=== PATIENT | female | born 1940 | race Hispanic/Latino ===

== ENCOUNTER 2020-07-15 13:22 | Observation (INO) | payer OTHER, MEDICARE ==
[~2020-07-15] VITALS: Ht 160 cm; Wt 55.3 kg
[2020-07-15 13:49] LABS: BASOPHILS % (AUTO) 0.6 % (0.0-5.0); EOSINOPHILS % (AUTO) 0.4 % (0.0-8.0); HEMATOCRIT 36.4 % (36-48); LYMPHOCYTES % (AUTO) 21.8 % (21.0-51.0); MEAN CORPUSCULAR HGB CONC 33.5 g/dL (32.0-36.0); MEAN CORPUSCULAR VOLUME 92.6 fL (79-99); MONOCYTES % (AUTO) 5.8 % (3.0-13.0); NEUTROPHILS % (AUTO) 71.4 % (40.0-77.0); PLATELET COUNT (AUTO) 196 K/uL (130-400); RED BLOOD CELL COUNT(AUTO) 3.93 MIL/uL (4.00-5.50); RED CELL DISTRIBUTION WIDTH 12.9 % (11.0-15.5); WHITE BLOOD COUNT (AUTO) 5.2 K/uL (4.8-10.8)
[2020-07-15 13:56] LABS: INR 1.01 (0.85-1.15)
[2020-07-15 13:57] LABS: PARTIAL THROMBOPLASTIN TIME 27.8 SEC (26.3-35.5)
[2020-07-15 14:02] LABS: CREATININE 0.9 mg/dL (0.5-1.5); POTASSIUM 3.9 mmol/L (3.5-5.1)
[2020-07-15 14:11] LABS: ALBUMIN 4.2 g/dL (3.5-5.0); BILIRUBIN,TOTAL 0.5 mg/dL (0.2-1.0); TOTAL PROTEIN, SERUM 7.7 g/dL (6.0-8.3)
[2020-07-15 15:36] LABS: APPEARANCE,URINE Clear (CLEAR); BILIRUBIN,URINE Negative (NEGATIVE); COLOR,URINE Yellow (YELLOW); GLUCOSE, URINE (UA) Negative (NEGATIVE); KETONES,URINE Trace mg/dL (NEGATIVE); LEUKOCYTE ESTERASE ,URINE Negative (NEGATIVE); NITRATE,URINE Negative (NEGATIVE); OCCULT BLOOD,URINE Trace (NEGATIVE); PH,URINE 7.5 (5.0-8.0); PROTEIN,URINE Negative (NEGATIVE); UROBILINOGEN,URINE 0.2 mg/dL (0.2-1.0)
[2020-07-15 16:18] LABS: BACTERIA,URINE Rare /HPF (None Seen); RBC,URINE 0-1 /HPF (0-1); SQUAMOUS EPITHELIAL CELL,UR None Seen /HPF (0-2); WBC,URINE None Seen /HPF (0-1)
[2020-07-15] MEDS ORDERED: ENOXAPARIN SODIUM 60 MG/0.6 ML SQ SCH (17:00)
[2020-07-15] MEDS ORDERED: MORPHINE SULFATE 4 MG/1ML SYG IVP PRN (17:15)
[2020-07-15] MEDS ORDERED: REGADENOSON 0.4 MG/5 ML PF SYG IVP SCH (17:15)
[2020-07-15] MEDS ORDERED: ENOXAPARIN SODIUM 60 MG/0.6 ML SQ ONE (20:43)
[2020-07-15] MEDS ORDERED: CLOPIDOGREL BISULFATE 75 MG TAB ONE (20:43)
[2020-07-15 22:20] VITALS: BP 148/69
[2020-07-15] MEDS ORDERED: CYCL30DR OU (23:13)
[2020-07-15] MEDS ORDERED: AMLO-257 PO (23:13)
[2020-07-15] MEDS ORDERED: ACET-2247 PO (23:13)
[2020-07-16 00:28] VITALS: BP 113/60
[2020-07-16 04:32] VITALS: BP 134/66
[2020-07-16 08:00] VITALS: BP 137/66
[2020-07-16] MEDS ORDERED: CLOPIDOGREL BISULFATE 75 MG TAB PO SCH (09:00)
[2020-07-16 12:03] VITALS: BP 131/71
[2020-07-16 16:00] VITALS: BP 148/66
== END 2020-07-16 18:05 | disposition home or self-care (01) ==
LOC: EDH 13:22 → EDHIP 16:15 → 3BH 20:58
PROVIDERS: ADMIT Internal Medicine; ATTEND Internal Medicine
DX: I24.9 Acute ischemic heart disease, unspecified (principal); Z20.822 Contact with and (suspected) exposure to COVID-19; I10 Essential (primary) hypertension; K21.9 Gastro-esophageal reflux disease without esophagitis; E78.5 Hyperlipidemia, unspecified; Z87.891 Personal history of nicotine dependence; Z90.710 Acquired absence of both cervix and uterus; Z79.899 Other long term (current) drug therapy; Z88.6 Allergy status to analgesic agent
CPT/HCPCS: 36415; 71045; 78452; 80053; 81001; 82550; 83605; 83690; 83880; 84484; 85025; 85610; 85730; 87040 ×2; 87426; 87804 ×2; 93005; 93017; 99285; A9500 ×2; G0378 ×23; J1650; J2785; U0003; 96374

== ENCOUNTER 2020-07-21 11:39 | Emergency (ER) | payer MEDICARE, OTHER ==
[~2020-07-21 11:39] MED LIST: ACET-2247 PO; AMLO-257 PO; CYCL30DR OU
[2020-07-21] MEDS ORDERED: HYDROCORTISONE SOD SUCCINATE 100 MG/2 ML VIAL ONE (12:57)
== END 2020-07-21 14:14 | disposition home or self-care (01) ==
LOC: EDH 11:39
DX: M54.2 Cervicalgia (principal); F41.9 Anxiety disorder, unspecified; R55 Syncope and collapse; I10 Essential (primary) hypertension; K21.9 Gastro-esophageal reflux disease without esophagitis; Z90.710 Acquired absence of both cervix and uterus; Z98.890 Other specified postprocedural states; Z88.6 Allergy status to analgesic agent; V43.52XA Car driver injured in collision with other type car in traffic accident, initial encounter; Y93.89 Activity, other specified; Y92.410 Unspecified street and highway as the place of occurrence of the external cause; Y99.8 Other external cause status
CPT/HCPCS: 71045; 93005; 96374; 99283; J1720

== ENCOUNTER → 2022-04-04 | Outpatient (CLI) | payer OTHER | END | disposition home or self-care (01) | LOC: SHCH 12:47 | PROVIDERS: ATTEND Internal Medicine Cardiovascular Disease | DX: I70.213 Atherosclerosis of native arteries of extremities with intermittent claudication, bilateral legs (principal) | CPT/HCPCS: 93925 ==

== ENCOUNTER → 2022-04-06 | Outpatient (CLI) | payer OTHER ==
[~2022-04-06] MED LIST changes: +REGADENOSON 0.4 MG/5 ML PF SYG IVP SCH
== END | disposition home or self-care (01) ==
LOC: SHCH 08:15
PROVIDERS: ATTEND Internal Medicine Cardiovascular Disease
DX: I25.6 Silent myocardial ischemia (principal); I10 Essential (primary) hypertension; R06.00 Dyspnea, unspecified; R53.83 Other fatigue; R06.02 Shortness of breath
CPT/HCPCS: 78452; 96374; 93017; J2785; A9500 ×2

== ENCOUNTER → 2022-06-11 | Outpatient (CLI) | payer OTHER, MEDICARE ==
[~2022-06-11] MED LIST changes: -REGADENOSON 0.4 MG/5 ML PF SYG IVP SCH
[2022-06-11 12:51] LABS: CHOLESTEROL 177 mg/dL (<200); HDL CHOLESTEROL 79 mg/dL (35-85); LDL DIRECT 91 mg/dL (0-99); TRIGLYCERIDES 55 mg/dL (30-200)
== END | disposition home or self-care (01) ==
LOC: LAB 08:24
PROVIDERS: ATTEND Internal Medicine Cardiovascular Disease
DX: I21.9 Acute myocardial infarction, unspecified (principal)
CPT/HCPCS: 36415; 80061

== ENCOUNTER → 2023-01-11 | Outpatient (CLI) | payer OTHER, MEDICARE ==
[2023-01-11 12:46] LABS: CHOLESTEROL 150 mg/dL (<200); HDL CHOLESTEROL 96 mg/dL (35-85); LDL DIRECT 51 mg/dL (0-99); TRIGLYCERIDES 30 mg/dL (30-200)
== END | disposition home or self-care (01) ==
LOC: LAB 08:41
PROVIDERS: ATTEND Internal Medicine Cardiovascular Disease
DX: E78.5 Hyperlipidemia, unspecified (principal)
CPT/HCPCS: 36415; 80061

== ENCOUNTER 2024-10-14 14:50 | Observation (INO) | payer OTHER, MEDICARE ==
[~2024-10-14] VITALS: Ht 160 cm; Wt 47.4 kg
--- NOTE | 2024-10-14 15:06 | ERN ---
General Chief Complaint: Fatigue Stated Complaint: GBW Time Seen by MD: 14:52 Source: patient, family History of Present Illness Initial Comments Patient is a an 83-year-old female coming in with generalized body weakness. Per family member patient has been feeling very weak in his has been eating well. Allergies: Coded Allergies: ibuprofen (Verified Allergy, Unknown, 07/15/20) Home Meds Reported Medications Acetaminophen (Tylenol) 325 Mg Tablet, 650 MG PO Q4HPRN PRN for PAIN LEVEL 1 TO 3, TAB 07/15/20 Cyclosporine (Restasis) 1 Each Droperette, 1 EACH OU BID, DROP 07/15/20 Amlodipine Besylate (Amlodipine Besylate) 5 Mg Tablet, 5 MG PO DAILY, TAB 07/15/20 Past Medical History Past Medical History: High Cholesterol, Hypertension Past Surgical History: Hysterectomy Surgical History Other: BACK SX, NECK SX ROS Dictation CONSTITUTIONAL: No chills, no fever, weakness, no diaphoresis, malaise. HEAD/FACE: No signs of trauma. EENT: No eye pain, no blurred vision, no tearing, no double vision, no ear pain, no ear discharge, no nose pain, no nasal congestion, no throat pain, no throat swelling, no mouth pain. RESPIRATORY: No cough, no orthopnea, no SOB, no stridor, no wheezing. CARDIOVASCULAR: No chest pain, no edema, no palpitations, no syncope. GASTROINTESTINAL/ABDOMINAL: No abdominal pain, no constipation, no diarrhea, no nausea, no vomiting. GENITOURINARY: No abnormal discharge, no dysuria, no frequent urination, no hematuria. No complaints of pain in the genitals. MUSCULOSKELETAL: No back pain, no gout, no joint pain, no joint swelling, no muscle pain, no muscle stiffness, no neck pain. INTEGUMENTARY: No change in color, no change in hair/nails, no dryness, no lesion, no lumps, no rash. NEUROLOGICAL/PSYCH: No anxiety, not depressed, no emotional problem, no headache, no numbness, no pre-existing deficit, no history of seizures, no tremors, no weakness. HEMATOLOGIC/LYMPHATIC: Not anemic, no history of blood clots, no apparent b leeding, no bruising, glands not swollen. All Systems Negative, Except as Noted. Physical Exam Physical Exam Dictation VITAL SIGNS: Reviewed. GENERAL APPEARANCE: Alert, oriented x3, no acute distress, obese. HEAD AND FACE: Non-traumatic. EYES: PERRL, pink conjunctivas, eyelid no trauma, anterior chamber clear. EARS: Pinnas intact and no signs of trauma or erythema. Ear canals clear and no discharge. TMs no erythema. NOSE: No discharge, no bleeding. OROPHARYNX: Mouth normal, teeth no caries, tongue pink. Pharynx clear, no erythema. Tonsils no exudates, no abscesses noted. Mucous membrane moist. NECK: Supple, non-tender, no thyromegaly, no masses, no JVD, no bruits. BREAST: Deferred. CHEST: No tenderness, no crepitus, no paradoxical movement, no retractions. LUNGS: Clear, well-ventilated, symmetric, no rales, no wheezing, no rhonchi, no stridor, good breath sounds bilaterally. HEART: Regular rate, regular rhythm, no murmur, no gallops. VASCULAR: No peripheral edema. ABDOMEN: Soft, positive bowel sounds, nondistended, no guarding, nontender, no rebound, no masses no hepatomegaly, no splenomegaly, no Hess's sign, no hernias. RECTAL: Deferred. GENITAL: Deferred. NEUROLOGICAL: Normal speech, gross motor function intact, gross sensory function intact. MUSCULOSKELETAL: Neck nontender, full range of motion, back nontender, full ra nge of motion. EXTREMITIES: Nontender, full range of motion. SKIN: Color pink, dry, no turgor, no rash, no lacerations, no abrasions, no contusions. LYMPHATICS: Deferred. Results Laboratory and Microbiology Lab and Micro Result Laboratory Tests Test 10/14/24 15:09 10/14/24 16:10 White Blood Count 4.2 K/uL (4.8-10.8) L Red Blood Count 3.49 MIL/uL (4.00-5.50) L Hemoglobin 10.7 g/dL (12.0-16.0) L Hematocrit 32.0 % (36-48) L Mean Corpuscular Volume 91.7 fL (79-99) Mean Corpuscular Hemoglobin 30.7 pg (27.0-33.0) Mean Corpuscular Hemoglobin Concent 33.4 g/dL (32.0-36.0) Red Cell Distribution Width 12.9 % (11.0-15.5) Platelet Count 176 K/uL (130-400) Mean Platelet Volume 9.7 fL (7.5-10.5) Immature Granulocyte % (Auto) 0.5 % (0-1) Neutrophils (%) (Auto) 74.4 % (40.0-77.0) Lymphocytes (%) (Auto) 11.1 % (21.0-51.0) L Monocytes (%) (Auto) 13.5 % (3.0-13.0) H Eosinophils (%) (Auto) 0.0 % (0.0-8.0) Basophils (%) (Auto) 0.5 % (0.0-5.0) Neutrophils # (Auto) 3.1 K/uL (1.8-7.7) Lymphocytes # (Auto) 0.5 K/uL (1.0-4.8) L Monocytes # (Auto) 0.6 K/uL (0.1-1.0) Eosinophils # (Auto) 0.00 K/uL (0.00-0.70) Basophils # (Auto) 0.02 K/uL (0.00-0.20) Absolute Immature Granulocyte (auto 0.02 K/uL (0-1) Nucleated Red Blood Cells 0.0 % (0.0-0.19) Sodium Level 133 mmol/L (136-145) L Potassium Level 3.6 mmol/L (3.5-5.1) Chloride Level 100 mmol/L (101-111) L Carbon Dioxide Level 28 mmol/L (21-32) Blood Urea Nitrogen 17 mg/dL (7-18) Creatinine 1.0 mg/dL (0.5-1.0) Glomerular Filtration Rate Calc 56 mL/min (>90) Random Glucose 112 mg/dL (70-105) H Total Calcium 8.7 mg/dL (8.5-10.1) Magnesium Level 2.10 mg/dL (1.80-2.40) Troponin I High Sensitivity 11 ng/L (4-50) Urine Color COLORLESS (YELLOW) Urine Appearance CLEAR (CLEAR) Urine pH 7.0 (5.0-8.0) Urine Specific [place] 1.006 (1.001-1.031) Urine Protein NEGATIVE mg/dL (NEGATIVE) Urine Glucose (UA) NEGATIVE mg/dL (NEGATIVE) Urine Ketones NEGATIVE mg/dL (NEGATIVE) Urine Occult Blood SMALL (NEGATIVE) H Urine Nitrate NEGATIVE (NEGATIVE) Urine Bilirubin NEGATIVE mg/dL (NEGATIVE) Urine Urobilinogen 0.2 mg/dL (0.2-1.0) Urine Leukocyte Esterase NEGATIVE [place]/uL Urine RBC 2-5 /HPF (0-1) H Urine WBC 0-1 /HPF (0-1) Urine Squamous Epithelial Cells RARE /HPF (0-2) Urine Bacteria None /HPF (None Seen) Labs Reviewed?: Yes EKG/XRAY/US/CT/MRI EKG Comment 10/14/2024 time 3:40 p.m. Ventricular rate [address] wave elevation or depression X-RAY Comment IMAGING REPORT Signed PATIENT: BRITTANY FIELDS MR#: [id number] : 1940 SEX: F AGE: 83 LOCATION: [facility] ORDER 99 STATUS: [facility] REPORT#: [id number] SERVICE 99 REASON: cp ORDERING PHYSICIAN: CORINNE CHAPIN MD PROCEDURE: CXR1VW - CHEST 1VW EXAM: XR Chest, 1 View. CLINICAL HISTORY: 83 year old female with chest pain. COMPARISON: None provided. FINDINGS: LUNGS: The lungs are clear. No consolidation. PLEURAL SPACES: No pleural effusion or pneumothorax. HEART: The heart size is mildly enlarged, indicating mild cardiomegaly. BONES: No acute osseous abnormality. VASCULATURE: The aorta appears atherosclerotic. The etiology of the patient's chest pain should be clinically correlated. Otherwise, the exam is negative. IMPRESSION: 1. No acute cardiopulmonary pathology. 2. Mild cardiomegaly and atherosclerotic aorta. /[place] DICTATED BY: MASSIEL FU MD DATE: 10/14/241732 ELECTRONICALLY SIGNED BY: MASSIEL FU MD DATE: 10/14/241732 [facility] MDM: Differential diagnosis: Dehydration, failure to thrive, anorexia, Rationale: Tests considered and ordered secondary to shared decision making include: labs, ECG and radiology Previous outside records reviewed: Old ER visits. Risk of complication and/or morbidity or mortality of patient management: None Medications-Per medication reconciliation Need for hospitalization: Patient does meet criteria for hospitalization. Need for emergency major/minor surgery: No There are no social concerns with this patient. Prescription drug management Prescriptions will include symptomatic care Patient's prior external medical records from other ER visits were reviewed by me as indicated. Prior testing and results from previous visits were reviewed. Prior tests were taken into account with medical decision making and resource utilization, independent historian/historians were used to obtain complete medical history. I independently interpreted the test that were performed, results were reviewed by me and considered findings on radiology if ordered. Medical management and examination interpretation discussions were had by me with other qualified healthcare professionals as indicated for the patient's care. Patient will be admitted under the care of Dr. IBARRA ED Course Orders Procedure Category Date Status Time Cbc With Differential LAB 10/14/24 Complete 15:00 Chest 1vw RAD 10/14/24 Resulted 15:00 12 Lead Ekg Tracing- EKG 10/14/24 Logged Technical 15:00 0.9%Nacl 1000ml (Ns PHA 10/14/24 In Process 1000ml) 15:00 Magnesium LAB 10/14/24 Complete 15:00 Troponin I High LAB 10/14/24 Complete Sensitivity 15:00 Urinalysis Profile LAB 10/14/24 Complete 15:00 Basic Metabolic Panel LAB 10/14/24 Complete 15:00 Current Medications Medications (Trade) Dose Ordered Sig/Aly Route PRN Reason Start Time Stop Time Status Last Admin Dose Admin Sodium Chloride 1,000 ml @ 0 mls/hr ONCE IV 10/14/24 15:00 10/15/24 14:59 10/14/24 15:58 Vital Signs Date Time Temp Pulse Resp B/P (MAP) Pulse Ox O2 Delivery O2 Flow Rate FiO2 10/14/24 16:22 98.2 85 16 137/60 98 Room Air* 0 21 10/14/24 14:52 98.1 94 18 155/67 98 Room Air 0 DX & DISP Disposition: Inpatient Decision to Admit Time: 17:01 Departure Impression: Primary Impression: Dehydration Additional Impression: Failure to thrive Condition: Stable Referrals: RONDA VIRAMONTES MD (PCP) CORINNE CHAPIN MD Oct 14, 2024 15:06
[2024-10-14 15:19] LABS: IMMATURE GRANULOCYTE ABSOLUTE 0.02 K/uL (0-1); NUCLEATED RED BLOOD CELLS 0.0 % (0.0-0.19); PLATELET COUNT (AUTO) 176 K/uL (130-400); RED BLOOD CELL COUNT(AUTO) 3.49 MIL/uL (4.00-5.50); RED CELL DISTRIBUTION WIDTH 12.9 % (11.0-15.5); WHITE BLOOD COUNT (AUTO) 4.2 K/uL (4.8-10.8)
[2024-10-14 15:25] LABS: CREATININE 1.0 mg/dL (0.5-1.0); GLOMERULAR FILTR. RATE CALC 56.0 mL/min (>90); GLUCOSE,RANDOM 112.0 mg/dL (70-105); SODIUM SERUM 133.0 mmol/L (136-145); UREA NITROGEN, BLOOD 17.0 mg/dL (7-18)
[2024-10-14] MEDS: 0.9%NACL 1000ML 1,000 ML IV SCH (15:58)
[2024-10-14 16:17] LABS: APPEARANCE,URINE CLEAR (CLEAR); GLUCOSE, URINE (UA) NEGATIVE (NEGATIVE); LEUKOCYTE ESTERASE ,URINE NEGATIVE Leu/uL (NEGATIVE); NITRATE,URINE NEGATIVE (NEGATIVE); OCCULT BLOOD,URINE SMALL (NEGATIVE)
[2024-10-14 16:27] LABS: ADD UA MICROSCOPIC YES
[2024-10-14 16:28] LABS: SQUAMOUS EPITHELIAL CELL,UR RARE /HPF (0-2)
--- NOTE | 2024-10-14 16:34 | HMCIMG ---
EXAM: XR Chest, 1 View. CLINICAL HISTORY: 83 year old female with chest pain. COMPARISON: None provided. FINDINGS: LUNGS: The lungs are clear. No consolidation. PLEURAL SPACES: No pleural effusion or pneumothorax. HEART: The heart size is mildly enlarged, indicating mild cardiomegaly. BONES: No acute osseous abnormality. VASCULATURE: The aorta appears atherosclerotic. The etiology of the patient's chest pain should be clinically correlated. Otherwise, the exam is negative. IMPRESSION: 1. No acute cardiopulmonary pathology. 2. Mild cardiomegaly and atherosclerotic aorta. /[place]
[2024-10-14] MEDS: 1/2 NS 1000ML 1,000 ML IV SCH (17:26)
--- NOTE | 2024-10-14 21:01 | HP ---
HISTORY AND PHYSICAL NOTE DATE OF CONSULTATION: 10/14/24 REASON FOR CONSULTATION: Weakness HISTORY OF PRESENT ILLNESS: Patient is a an 83-year-old female coming in with generalized body weakness. Per family member patient has been feeling very weak in his has been eating well. Allergies: Coded Allergies: ibuprofen (Verified Allergy, Unknown, 07/15/20) Home Meds Reported Medications Acetaminophen (Tylenol) 325 Mg Tablet, 650 MG PO Q4HPRN PRN for PAIN LEVEL 1 TO 3, TAB 07/15/20 Cyclosporine (Restasis) 1 Each Droperette, 1 EACH OU BID, DROP 07/15/20 Amlodipine Besylate (Amlodipine Besylate) 5 Mg Tablet, 5 MG PO DAILY, TAB 07/15/20 Past History Past Medical History Past Medical History: High Cholesterol, Hypertension Past Surgical History: Hysterectomy Surgical History Other: BACK SX, NECK SX Review of Systems ROS Dictation CONSTITUTIONAL: No chills, no fever, weakness, no diaphoresis, malaise. HEAD/FACE: No signs of trauma. EENT: No eye pain, no blurred vision, no tearing, no double vision, no ear pain, no ear discharge, no nose pain, no nasal congestion, no throat pain, no throat swelling, no mouth pain. RESPIRATORY: No cough, no orthopnea, no SOB, no stridor, no wheezing. CARDIOVASCULAR: No chest pain, no edema, no palpitations, no syncope. GASTROINTESTINAL/ABDOMINAL: No abdominal pain, no constipation, no diarrhea, no nausea, no vomiting. GENITOURINARY: No abnormal discharge, no dysuria, no frequent urination, no hematuria. No complaints of pain in the genitals. MUSCULOSKELETAL: No back pain, no gout, no joint pain, no joint swelling, no muscle pain, no muscle stiffness, no neck pain. INTEGUMENTARY: No change in color, no change in hair/nails, no dryness, no lesion, no lumps, no rash. NEUROLOGICAL/PSYCH: No anxiety, not depressed, no emotional problem, no headache, no numbness, no pre-existing deficit, no history of seizures, no tremors, no weakness. HEMATOLOGIC/LYMPHATIC: Not anemic, no history of blood clots, no apparent bleeding, no bruising, glands not swollen. All Systems Negative, Except as Noted. ALLERGIES: Coded Allergies: ibuprofen (Verified Allergy, Unknown, 07/15/20) HOME MEDS: Reported Medications Acetaminophen (Tylenol) 325 Mg Tablet, 650 MG PO Q4HPRN PRN for PAIN LEVEL 1 TO 3, TAB 07/15/20 Cyclosporine (Restasis) 1 Each Droperette, 1 EACH OU BID, DROP 07/15/20 Amlodipine Besylate (Amlodipine Besylate) 5 Mg Tablet, 5 MG PO DAILY, TAB 07/15/20 INPATIENT MEDS: Current Medications Medications Dose Ordered Sig/Aly Start Time Stop Time Status Last Admin Sodium Chloride 1,000 ml @ 0 mls/hr ONCE 10/14/24 15:00 10/15/24 14:59 10/14/24 15:58 Sodium Chloride 1,000 ml @ 150 mls/hr Q6H40M 10/14/24 17:30 11/13/24 17:29 10/14/24 17:26 VITAL SIGNS Vital Signs Date Time Temp Pulse Resp B/P (MAP) Pulse Ox O2 Delivery O2 Flow Rate FiO2 10/14/24 20:00 99.5 90 17 121/60 96 Room Air* 0 21 10/14/24 16:22 98.2 85 16 137/60 98 Room Air* 0 21 10/14/24 14:52 98.1 94 18 155/67 98 Room Air 0 PHYSICAL EXAM Physical Exam Physical Exam Physical Exam Dictation VITAL SIGNS: Reviewed. GENERAL APPEARANCE: Alert, oriented x3, no acute distress, obese. HEAD AND FACE: Non-traumatic. EYES: PERRL, pink conjunctivas, eyelid no trauma, anterior chamber clear. EARS: Pinnas intact and no signs of trauma or erythema. Ear canals clear and n o discharge. TMs no erythema. NOSE: No discharge, no bleeding. OROPHARYNX: Mouth normal, teeth no caries, tongue pink. Pharynx clear, no erythema. Tonsils no exudates, no abscesses noted. Mucous membrane moist. NECK: Supple, non-tender, no thyromegaly, no masses, no JVD, no bruits. BREAST: Deferred. CHEST: No tenderness, no crepitus, no paradoxical movement, no retractions. LUNGS: Clear, well-ventilated, symmetric, no rales, no wheezing, no rhonchi, no stridor, good breath sounds bilaterally. HEART: Regular rate, regular rhythm, no murmur, no gallops. VASCULAR: No peripheral edema. ABDOMEN: Soft, positive bowel sounds, nondistended, no guarding, nontender, no rebound, no masses no hepatomegaly, no splenomegaly, no Hess's sign, no hernias. RECTAL: Deferred. GENITAL: Deferred. NEUROLOGICAL: Normal speech, gross motor function intact, gross sensory function intact. MUSCULOSKELETAL: Neck nontender, full range of motion, back nontender, full range of motion. EXTREMITIES: Nontender, full range of motion. SKIN: Color pink, dry, no turgor, no rash, no lacerations, no abrasions, no contusions. LYMPHATICS: Deferred. LABORATORY RESULTS Laboratory Tests 10/14/24 15:09: White Blood Count 4.2, Red Blood Count 3.49, Hemoglobin 10.7, Hematocrit 32.0, Mean Corpuscular Volume 91.7, Mean Corpuscular Hemoglobin 30.7, Mean Corpuscular Hemoglobin Concent 33.4, Red Cell Distribution Width 12.9, Platelet Count 176, Mean Platelet Volume 9.7, Immature Granulocyte % (Auto) 0.5, Neutrophils (%) (Auto) 74.4, Lymphocytes (%) (Auto) 11.1, Monocytes (%) (Auto) 13.5, Eosinophils (%) (Auto) 0.0, Basophils (%) (Auto) 0.5, Neutrophils # (Auto) 3.1, Lymphocytes # (Auto) 0.5, Monocytes # (Auto) 0.6, Eosinophils # (Auto) 0.00, Basophils # (Auto) 0.02, Absolute Immature Granulocyte (auto 0.02, Nucleated Red Blood Cells 0.0, Sodium Level 133, Potassium Level 3.6, Chloride Level 100, Carbon Dioxide Level 28, Blood Urea Nitrogen 17, Creatinine 1.0, Glomerular Filtration Rate Calc 56, Random Glucose 112, Total Calcium 8.7, Magnesium Level 2.10, Troponin I High Sensitivity 11 10/14/24 16:10: Urine Color COLORLESS, Urine Appearance CLEAR, Urine pH 7.0, Urine Specific [place] 1.006, Urine Protein NEGATIVE, Urine Glucose (UA) NEGATIVE, Urine Ketones NEGATIVE, Urine Occult Blood SMALL, Urine Nitrate NEGATIVE, Urine Bilirubin NEGATIVE, Urine Urobilinogen 0.2, Urine Leukocyte Esterase NEGATIVE, Urine RBC 2-5, Urine WBC 0-1, Urine Squamous Epithelial Cells RARE, Urine Bacteria None PROBLEM LIST: (1) Dehydration ICD Codes: E86.0 - Dehydration (2) Failure to thrive PLAN Hydrate and monitor CAMILLE IBARRA MD Oct 14, 2024 21:01
[2024-10-15] MEDS ORDERED: ROSU5TAB51 PO (02:30)
[2024-10-15] MEDS ORDERED: FLUT16H NS (02:30)
[2024-10-15] MEDS ORDERED: ASPI-1005 PO (02:30)
[2024-10-15] MEDS ORDERED: FAMO40TA75 PO (02:30)
--- NOTE | 2024-10-15 02:46 | NUR ---
REPORT GIVEN TO NURSE KEVAN, ALL QUESTIONS ANSWERED AT THIS TIME. NURSE EXPECTING PT ARRIVAL TO THE UNIT
[2024-10-15 03:00] VITALS: BP 151/66; PULSE 80; RESP 18; TEMP 97.9; O2SAT 98
[2024-10-15 06:13] LABS: IMMATURE GRANULOCYTE ABSOLUTE 0.01 K/uL (0-1); NUCLEATED RED BLOOD CELLS 0.0 % (0.0-0.19); PLATELET COUNT (AUTO) 156 K/uL (130-400); RED BLOOD CELL COUNT(AUTO) 3.58 MIL/uL (4.00-5.50); RED CELL DISTRIBUTION WIDTH 12.8 % (11.0-15.5); WHITE BLOOD COUNT (AUTO) 4.0 K/uL (4.8-10.8)
--- NOTE | 2024-10-15 06:31 | EKG ---
[facility] Test Date: 2024-10-14 Test Time: 15:40:44 Pat Name: BRITTANY FIELDS Department: 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 : 1940 Requested By: CORINNE CHAPIN Order Number: [id number] Reading MD: Kev Dow Measurements Intervals [place] Rate: 114 P: 106 GA: 153 QRS: -15 QRSD: 76 T: 72 QT: 329 QTc: 441 Interpretive Statements Sinus tachycardia Multiple ventricular premature complexes Probable anteroseptal infarct, old Nonspecific T abnormalities, lateral leads Compared to ECG 07/21/2020 11:45:30 Ventricular premature complex(es) now present T-wave abnormality now present Atrial premature complex(es) no longer present Myocardial infarct finding still present Electronically Signed On 10-16-2024 12:20:33 CDT by Kev Dow Please click the below link to view image of tracing.
[2024-10-15 06:36] LABS: ASPARTATE AMINOTRANSFERASE 30.0 U/L (10-37); CREATININE 0.8 mg/dL (0.5-1.0); GLOMERULAR FILTR. RATE CALC 73.0 mL/min (>90); GLUCOSE,RANDOM 97.0 mg/dL (70-105); SODIUM SERUM 138.0 mmol/L (136-145); TOTAL PROTEIN, SERUM 6.3 g/dL (6.0-8.3); UREA NITROGEN, BLOOD 13.0 mg/dL (7-18)
[2024-10-15 07:44] VITALS: O2SAT 98
[2024-10-15 08:00] VITALS: BP 110/56; PULSE 80; RESP 16; TEMP 98.3
[2024-10-15] MEDS ORDERED: PoTASSium chloRIDE 20MEQ ER 20 MEQ ERTAB PO PRN (08:00)
[2024-10-15] MEDS: PoTASSium chl 10% ELIXIR 20MEQ 20 MEQ/15 ML UDCUP PO PRN (08:58)
--- NOTE | 2024-10-15 10:03 | DS ---
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): [] PROCEDURE(S)/TREATMENT(S): [None] PROBLEM(S): [] FOLLOW-UP TEST(S): [None] DISCHARGE INSTRUCTIONS: [Follow up with PCP in 2-3 days] Home Meds Reported Medications Fluticasone Propionate (Flonase Nasal [place]) 50 Mcg/Actuation [place], 2 SPRAY NS DAILY, #16 GM 0 Refills 10/15/24 Aspirin (ASPIRIN 81MG CHEW TAB) 81 Mg Tab.chew, 81 MG PO DAILY, TAB.CHEW 10/15/24 Rosuvastatin Calcium (Rosuvastatin Calcium) 5 Mg Tablet, 1 TAB PO DAILY for high cholesterol for 30 Days, #30 TAB 0 Refills 10/15/24 Amlodipine Besylate (Amlodipine Besylate) 5 Mg Tablet, 1 TAB PO DAILY for 30 Days, #30 TAB 0 Refills 10/15/24 Famotidine (Pepcid) 40 Mg Tablet, 1 TAB PO DAILY for 30 Days, #30 TAB 0 Refills 10/15/24 Acetaminophen (Tylenol) 325 Mg Tablet, 650 MG PO Q4HPRN PRN for PAIN LEVEL 1 TO 3, TAB 07/15/20 Cyclosporine (Restasis) 1 Each Droperette, 1 EACH OU BID, DROP 07/15/20 Amlodipine Besylate (Amlodipine Besylate) 5 Mg Tablet, 5 MG PO DAILY, TAB 07/15/20 CAMILLE IBARRA MD Oct 15, 2024 10:03
--- NOTE | 2024-10-15 10:42 | NUR ---
DCP:HOME Pt currently lives at home with her son. pt does not have any DME, home health, or provider services. Pt states that she is able to complete ADLs independently. PCP is Dr. Julio Perez and uses [facility] for any short term RX needs and [employer] mail for [facility] RX needs. At [place] pt will want to go home and family can assist with transportation services. Addendum: 10/15/24 at 1044 by WILLIAN CHUNG SS Amended: Links added.
[2024-10-15 12:00] VITALS: BP 117/62; PULSE 81; RESP 16; TEMP 98
--- NOTE | 2024-10-15 15:19 | NUR ---
DC INSTRUCTIONS GIVEN TO PATIENT/MIMIE ACKNOWLEDGED. IV REMOVED
== END 2024-10-15 16:00 | disposition home or self-care (01) ==
LOC: EDH 14:50 → EDHIP 17:01 → 3CH 10-15 02:49
PROVIDERS: ADMIT Internal Medicine; ATTEND Internal Medicine
DX: E86.0 Dehydration (principal); R07.89 Other chest pain; R53.1 Weakness; I10 Essential (primary) hypertension; E78.00 Pure hypercholesterolemia, unspecified; R62.7 Adult failure to thrive; Z88.6 Allergy status to analgesic agent; Z90.710 Acquired absence of both cervix and uterus; Z79.899 Other long term (current) drug therapy; Z98.890 Other specified postprocedural states
CPT/HCPCS: 99284; 83735; 84484; 80048; 85025 ×2; 81001; 36415 ×2; 71045; 93005; 96360; 96361; 80053; G0378 ×23